=== PATIENT | female | born 2000 | race Caucasian/White ===

== ENCOUNTER 2025-07-28 17:22 | Emergency (ER) | payer OTHER, SELFPAY ==
[~2025-07-28] VITALS: Ht 154.9 cm; Wt 63.8 kg
[2025-07-28] MEDS ORDERED: LORA-622 PO (19:07)
[2025-07-28] MEDS ORDERED: DIP005TP EX (19:07)
--- NOTE | 2025-07-28 19:12 | ED.PDOC ---
History of Present Illness(SKN HPI Comments Pt has a couple small red bumps that she believes are spider bites and that she is having an allergic reaction, she took half a benadryl but it makes irritable. Denies difficulty breathing, chest pain, shortness of breath, throat swelling, fever or chills. Chief Complaint: Allergic Reaction Time Seen by MD: 18:00 History of Present Illness: Nurses Notes, Medications, Allergies Allergies: Coded Allergies: Diphenhydramine (Unverified Adverse Reaction, Intermediate, 07/28/25) Information Source: Patient Mode of Arrival: Ambulatory Past Medical History PAST MEDICAL HISTORY: Denies Surgical History: Denies all surgeries CENTER LEAD CONSULTANT History: No Pertinent CENTER LEAD CONSULTANT History Family History Family History: Unknown All Other Systems: Reviewed and Negative (see hpi) Physical Exam General Appearance: No Apparent Distress, Normal HEENT: Pharynx Normal Neck: Full Range of Motion, Non-Tender Respiratory: Chest Non-Tender, Lungs Clear, No Accessory Muscle Use, No Respira tory Distress, Normal Breath Sounds Cardiovascular: No Edema, No JVD, No Murmur, No Gallop, Normal Peripheral Pulses, Regular Rate/Rhythm Breast Exam: Deferred Gastrointestinal: No Organomegaly, Non Tender, No Pulsatile Mass, Normal Bowel Sounds, Soft Genitalia: Deferred Pelvic: Deferred Rectal: Deferred Extremities: Normal capillary refill, Normal range of motion, No pedal edema Musculoskeletal : Apperance: Normal Neurologic: Alert, No Motor Deficits, Normal Affect, Normal Mood, No Sensory Deficits Cerebellar Function: Normal Reflexes: NOT DONE Skin: Dry, Normal Color, Rash (Urticarial rash right anterior forearm seema hable no noted opening or drainage no noted streaking or excoriations), Warm Lymphatic: No Adenopathy Was a procedure done? Was a procedure done?: No Differential Diagnosis (INTG) Differential Diagnosis: Cellulitis Differential Diagnosis: Abscess, Impetigo, Tinea, Urticaria X-Ray, Labs, Meds, VS Vital Signs Date Time Temp Pulse Resp B/P (MAP) Pulse Ox O2 Delivery O2 Flow Rate FiO2 07/28/25 17:24 97.8 93 20 122/91 99 97.8 X-Ray, Labs, Meds, VS Comment Patient given Decadron 10 mg IM and famotidine 40 mg p.o.. Noted improvement in symptoms requesting discharge at this time. Script trial of antihistamine and steroid cream. Advised to take medication as prescribed side effects discussed. Avoid Benadryl due to your sensitivity. Rest increase p.o. fluids with electrolytes. Follow up with your PCP in 2-3 days consider referral to sanitation manager if symptoms persist. ER return precautions given patient indicates understanding agrees with discharge plan of care. Time of 1ST Reevaluation: 18:15 Reevaluation 1ST: Improved Time of 2ND Reevaluation: 19:08 Reevaluation 2ND: Improved Patient Education/Counseling: Diagnosis, Treatment, Need For Follow Up Family Education/Counseling: No Family Present SEPSIS Sepsis Screen Date sepsis recognized/suspect: Jul 28, 2025 Time Sepsis recognized/suspect: 1728 Recent Procedure: No On Antibiotic Therapy: No Respiratory Rate >20: No Heart Rate >90: No Temp<36 C (96.8 F) or >38.3 C: No SBP <90 or MAP <65 mmHG: No New Acute Mental Status Change: No Is the patient on CPAP, BIPAP,: No Vital Signs Date Time Temp Pulse Resp B/P (MAP) Pulse Ox O2 Delivery O2 Flow Rate FiO2 07/28/25 17:24 97.8 93 20 122/91 99 97.8 Departure 1 Departure Time of Disposition: 19:08 Impression: Primary Impression: Urticarial rash Disposition: 01 HOME / SELF CARE / HOMELESS Condition: Stable e-Prescriptions Loratadine (Claritin) 10 Mg Tab 1 TAB PO DAILY for 10 Days, #10 TAB Prov: GRACIELA DOWELL 07/28/25 Betamethasone Dipropionate (Betamethasone Dipropionat) 0.05 % Cre 0.05 % EX BID for 7 Days, #15 GM Prov: GRACIELA DOWELL 07/28/25 Discharged With: Self Critical Care Note Critical Care Time?: No Stability Stability form required: No GRACIELA DOWELL Jul 28, 2025 19:12
[2025-07-28] MEDS: FAMOTIDINE 20 MG TAB PO ONE (19:21)
[2025-07-28 19:22] VITALS: BP 131/87; PULSE 77; RESP 18; TEMP 98.3; O2SAT 100
== END 2025-07-28 19:33 | disposition home or self-care (01) ==
LOC: ER 17:22
DX: L50.9 Urticaria, unspecified (principal); Z79.899 Other long term (current) drug therapy
CPT/HCPCS: 96372; J1100